=== PATIENT | female | born 1935 | race African-American/Black ===

== ENCOUNTER 2017-08-08 18:26 | Inpatient (IN) ==
[2017-08-08] MEDS ORDERED: 0.9 % Sodium Chloride 500 ML IVC ONE (19:02)
[2017-08-08] MEDS ORDERED: Ondansetron 4 MG/2 ML VIAL IVP ONE (19:08)
--- NOTE | 2017-08-08 19:15 | Emergency Department Note ---
Disposition Clinical Impression: Near syncope Pneumonia Qualifiers: Pneumonia type: due to unspecified organism Laterality: unspecified laterality Lung location: unspecified part of lung Qualified Code(s): J18.9 - Pneumonia, unspecified organism Disposition: Admitted As Inpatient Condition: Fair Referrals: Lobo Nunez MD [Primary Care Provider] - Forms: ED Satisfaction Letter General Adult HPI - General Chief complaint: ED Neuro Symptoms/Deficit Stated complaint: dizziness, headache Time Seen by Provider: 08/08/17 18:35 Source: patient, family Mode of arrival: ambulatory Limitations: no limitations Nursing Notes Reviewed: Yes Vital Signs Reviewed: Yes - History of Present Illness HPI Narrative: 81-year-old female with a history of hypertension presents for evaluation of dizziness. Patient states that she was recently treated for UTI yesterday. Patient had no urinary complaints but was found to have a UTI by her primary care doctor was started on Bactrim. Patient states that since then she has felt dizzy which she describes is more lightheadedness. Patient's been lightheaded upon sitting and standing. Patient's also felt nauseous but no vomiting. Patient denies any chest pain or shortness of breath. But has noted some URI symptoms. Patient denies any fevers. Patient states she has has had intermittent left lower quadrant abdominal pain. Patient denies any change in stools. The only change in medications included her recent Bactrim. Denies history of heart attacks or diabetes. Denies history of strokes. Pain Scale: 0 - Related Data Previous Rx's Medication Instructions Recorded Meclizine [Antivert] 25 mg PO ONCE PRN #14 tablet 06/08/15 Ondansetron HCl [Zofran] 4 mg PO Q6H PRN #12 tablet 06/08/15 Allergies Allergy/AdvReac Type Severity Reaction Status Date / Time codeine Allergy Hives Verified 06/07/15 21:41 All systems ED: reviewed and negative except as stated. Constitutional: Denies: fever Cardiovascular: Denies: chest pain Respiratory: Denies: cough, dyspnea Gastrointestinal: Reports: abdominal pain, nausea Past Medical History - Past Medical History Source: patient Medical history: Reports: hyperlipidemia, hypertension Psychiatric history: Reports: no psych history CART PUSHER history: Reports: no CART PUSHER history - Social History Smoking Status: Former smoker Smokeless Tobacco Status: No Alcohol use: Reports: none Drug use: Reports: none Physical Exam - General Limitations: no limitations General appearance: alert, in no apparent distress - Head Head exam: atraumatic, normocephalic, normal inspection - Eye Eye exam: Present: normal appearance, PERRL, EOMI - ENT ENT exam: normal exam, normal oropharynx, mucous membranes moist - Neck Neck exam: Present: normal inspection, trachea midline - Chest Chest inspection: Present: normal inspection, symmetric chest wall rise - Respiratory Respiratory exam: Present: normal lung sounds bilaterally. Absent: respiratory distress - Cardiovascular Cardiovascular exam: Present: regular rate, normal rhythm, systolic murmur (2/6 systolic murmur left sternal border) - Abdominal Exam Abdominal exam: Present: soft, tenderness. Absent: guarding, rebound - Extremities Exam Extremities exam: Present: normal inspection, pedal edema (1+ b/l) - Expanded Lower Extremity Exam Neurovascular/Tendon exam: Present: normal capillary refill. Absent: pulse deficit, motor deficit, sensory deficit - Back Exam Back exam: Present: normal inspection, full ROM. Absent: tenderness, CVA tenderness (L) - Neurological Exam Neurological exam: Present: alert, oriented X3, CN II-XII intact - Expanded Neurological Exam Patient oriented to: Present: person, place, time Speech: Present: fluid speech Cranial nerves: EOM function (II, III, IV, ): Normal, facial sensation (V): Normal, facial palsy (VII): Normal, spinal accessory function (XI): Normal, tongue deviation (XII): Normal Motor strength - LUE: 5/5 Motor strength - RUE: 5/5 Motor strength - LLE: 5/5 Motor strength - RLE: 5/5 Coma Scale Eye Opening: Spontaneous Coma Scale Motor Response: Obeys Commands Coma Scale Verbal Response: Oriented Coma Scale Total: 15 - Skin Skin exam: Present: warm, dry, intact, normal color Course Course Narrative: Patient seen and examined. Patient will get extensive evaluation including cardiopulmonary evaluation given the degree of lightheadedness and near- syncope. Patient will also get basic labs, urinalysis, chest x-ray CT of the head and abdomen pelvis. Disposition likely admission. - Reevaluation(s) Reevaluation #1: Patient seen and examined. Patient's in no acute distress. Patient states she does been having some cough with some mucousy drainage. Given the patient's history of near-syncope as well as evidence of pneumonia patient would best be observed with IV antibiotics. Patient has no oxygen requirement. Patient does not meet sepsis criteria. Time: 20:57 Vital Signs Temperature 101.1 F H 08/08/17 18:27 Pulse Rate 74 08/08/17 18:27 Respiratory Rate 18 08/08/17 18:27 Blood Pressure 121/62 08/08/17 18:27 O2 Sat by Pulse Oximetry 93 08/08/17 18:27 Temperature 100.2 F H 08/08/17 20:08 Pulse Rate 67 08/08/17 20:08 Respiratory Rate 20 08/08/17 20:08 Blood Pressure 107/53 08/08/17 20:08 O2 Sat by Pulse Oximetry 94 08/08/17 20:08 Oxygen Delivery Oxygen Delivery Room Air Medical Decision Making - MDM Narrative Medical decision making narrative: Patient presented for complaints of headache as well as fever initially. Patient had no suspicion or clinical signs of meningitis on exam. Patient fever sources likely URI with possibly secondary pneumonia. Patient also describes more near syncope symptoms. Given the patient's source of infection as well as near-syncope the patient would best be admitted with IV antibiotics and observation with further testing. Patient was not septic and did not meet criteria. Patient was treated for community acquired pneumonia. Patient denied any chest pain. Patient's screening cardiopulmonary exam was negative in the ED have the patient did have a faint murmur and would best be evaluated via inpatient. Patient was aware plan of care. - Lab Data Lab results reviewed: Yes I reviewed the patient's lab results. Result diagrams: 08/08/17 19:13 08/08/17 19:13 Lab Results 08/08/17 08/08/17 08/08/17 Range/Units 18:55 19:03 19:03 WBC (4.3-11.1) K/mcL RBC (3.82-4.97) M/mcL Hgb (11.5-15.4) g/dL Hct (35.3-44.9) % MCV (83.0-100.0) fL MCH (28.0-33.3) pg MCHC (31.6-35.5) g/dL RDW (11.5-14.5) % Plt Count (140-400) K/mcL MPV (9.4-12.4) fL Immature Gran % (0-4) % Seg Neutrophils % % Lymphocytes % % Monocytes % % Eosinophils % % Basophils % % Neutrophils # (1.6-8.9) K/mcL Lymphocytes # (0.6-4.6) K/mcL Monocytes # (0.0-1.3) K/mcL Eosinophils # (0.0-0.6) K/mcL Basophils # (0.0-0.2) K/mcL Platelet Estimate (Normal) PT 13.3 H (9.4-12.1) Seconds INR 1.2 APTT 37.2 H (26.0-36.0) Seconds Sodium (136-145) mEq/L Potassium (3.5-5.1) mEq/L Chloride (98-107) mEq/L Carbon Dioxide (23-29) mEq/L BUN (8-23) mg/dL Creatinine (0.60-1.20) mg/dL Est GFR ( Amer) (> 60) Est GFR (Non-Af Amer) (> 60) BUN/Creatinine Ratio (6-26) Glucose (70-105) mg/dL POC Glucose 119 H (70-99) mg/dL Calculated Osmolality (280-300) Lactic Acid (0.5-2.2) mmol/L Calcium (8.6-10.3) mg/dL Total Bilirubin (0.3-1.0) mg/dL Direct Bilirubin (0.0-0.2) mg/dL Indirect Bilirubin (0.0-1.2) mg/dL AST (13-39) Units/L ALT (7-52) Units/L Alkaline Phosphatase (34-104) Units/L Troponin I (< 0.04) ng/mL B-Natriuretic Peptide 129 H (Less than 100) pg/mL Serum Total Protein (6.4-8.9) g/dL Albumin (3.5-5.7) g/dL Globulin (2.4-3.5) g/dL Albumin/Globulin Ratio (1.1-2.2) Lipase (11-82) Units/L Ur Specimen Adequacy Urine Color (Yellow) Urine Clarity (Clear) Urine pH (5.0-8.0) pH Units Ur Specific Newell (1.010-1.025) Urine Protein (Neg-Trace) mg/dL Urine Glucose (UA) (Normal) mg/dL Urine Ketones (Negative) mg/dL Urine Blood (Negative) Urine Nitrite (Negative) Urine Bilirubin (Negative) Urine Urobilinogen (Normal) mg/dL Ur Leukocyte Esterase (Negative) Urine Microscopic RBC (0-3) per hpf Urine Microscopic WBC (0-3) per hpf Ur Squamous Epith Cells (None-Few) per lpf Urine Bacteria (None-Few) per hpf Hyaline Casts (None-Few) per lpf Ur Culture Indicated? (NO) 08/08/17 08/08/17 08/08/17 Range/Units 19:13 19:13 19:17 WBC 3.4 L (4.3-11.1) K/mcL RBC 4.75 (3.82-4.97) M/mcL Hgb 13.6 (11.5-15.4) g/dL Hct 41.4 (35.3-44.9) % MCV 87.2 (83.0-100.0) fL MCH 28.6 (28.0-33.3) pg MCHC 32.9 (31.6-35.5) g/dL RDW 14.7 H (11.5-14.5) % Plt Count 117 L (140-400) K/mcL MPV 11.3 (9.4-12.4) fL Immature Gran % 1.5 (0-4) % Seg Neutrophils % 75.5 % Lymphocytes % 4.8 % Monocytes % 12.2 % Eosinophils % 6.0 % Basophils % 0.0 % Neutrophils # 2.6 (1.6-8.9) K/mcL Lymphocytes # 0.2 L (0.6-4.6) K/mcL Monocytes # 0.4 (0.0-1.3) K/mcL Eosinophils # 0.2 (0.0-0.6) K/mcL Basophils # 0.0 (0.0-0.2) K/mcL Platelet Estimate Slight Decrease L (Normal) PT (9.4-12.1) Seconds INR APTT (26.0-36.0) Seconds Sodium 134 L (136-145) mEq/L Potassium 4.3 (3.5-5.1) mEq/L Chloride 98 (98-107) mEq/L Carbon Dioxide 25 (23-29) mEq/L BUN 17 (8-23) mg/dL Creatinine 1.42 H (0.60-1.20) mg/dL Est GFR ( Amer) 43 L (> 60) Est GFR (Non-Af Amer) 36 L (> 60) BUN/Creatinine Ratio 12 (6-26) Glucose 120 H (70-105) mg/dL POC Glucose (70-99) mg/dL Calculated Osmolality 281 (280-300) Lactic Acid (0.5-2.2) mmol/L Calcium 9.6 (8.6-10.3) mg/dL Total Bilirubin 0.8 (0.3-1.0) mg/dL Direct Bilirubin 0.3 H (0.0-0.2) mg/dL Indirect Bilirubin 0.5 (0.0-1.2) mg/dL AST 18 (13-39) Units/L ALT 15 (7-52) Units/L Alkaline Phosphatase 60 (34-104) Units/L Troponin I < 0.03 (< 0.04) ng/mL B-Natriuretic Peptide (Less than 100) pg/mL Serum Total Protein 6.9 (6.4-8.9) g/dL Albumin 4.4 (3.5-5.7) g/dL Globulin 2.5 (2.4-3.5) g/dL Albumin/Globulin Ratio 1.8 (1.1-2.2) Lipase 3 L (11-82) Units/L Ur Specimen Adequacy See below A Urine Color Yellow (Yellow) Urine Clarity Cloudy A (Clear) Urine pH 6.0 (5.0-8.0) pH Units Ur Specific Newell 1.027 H (1.010-1.025) Urine Protein 30 H (Neg-Trace) mg/dL Urine Glucose (UA) Normal (Normal) mg/dL Urine Ketones 15 H (Negative) mg/dL Urine Blood Negative (Negative) Urine Nitrite Negative (Negative) Urine Bilirubin Negative (Negative) Urine Urobilinogen Normal (Normal) mg/dL Ur Leukocyte Esterase Small H (Negative) Urine Microscopic RBC 0-3 (0-3) per hpf Urine Microscopic WBC 5-15 H (0-3) per hpf Ur Squamous Epith Cells Many H (None-Few) per lpf Urine Bacteria Few (None-Few) per hpf Hyaline Casts None Seen (None-Few) per lpf Ur Culture Indicated? NO. A (NO) 06/18/18 Range/Units 20:14 WBC (4.3-11.1) K/mcL RBC (3.82-4.97) M/mcL Hgb (11.5-15.4) g/dL Hct (35.3-44.9) % MCV (83.0-100.0) fL MCH (28.0-33.3) pg MCHC (31.6-35.5) g/dL RDW (11.5-14.5) % Plt Count (140-400) K/mcL MPV (9.4-12.4) fL Immature Gran % (0-4) % Seg Neutrophils % % Lymphocytes % % Monocytes % % Eosinophils % % Basophils % % Neutrophils # (1.6-8.9) K/mcL Lymphocytes # (0.6-4.6) K/mcL Monocytes # (0.0-1.3) K/mcL Eosinophils # (0.0-0.6) K/mcL Basophils # (0.0-0.2) K/mcL Platelet Estimate (Normal) PT (9.4-12.1) Seconds INR APTT (26.0-36.0) Seconds Sodium (136-145) mEq/L Potassium (3.5-5.1) mEq/L Chloride (98-107) mEq/L Carbon Dioxide (23-29) mEq/L BUN (8-23) mg/dL Creatinine (0.60-1.20) mg/dL Est GFR ( Amer) (> 60) Est GFR (Non-Af Amer) (> 60) BUN/Creatinine Ratio (6-26) Glucose (70-105) mg/dL POC Glucose (70-99) mg/dL Calculated Osmolality (280-300) Lactic Acid 1.0 (0.5-2.2) mmol/L Calcium (8.6-10.3) mg/dL Total Bilirubin (0.3-1.0) mg/dL Direct Bilirubin (0.0-0.2) mg/dL Indirect Bilirubin (0.0-1.2) mg/dL AST (13-39) Units/L ALT (7-52) Units/L Alkaline Phosphatase (34-104) Units/L Troponin I (< 0.04) ng/mL B-Natriuretic Peptide (Less than 100) pg/mL Serum Total Protein (6.4-8.9) g/dL Albumin (3.5-5.7) g/dL Globulin (2.4-3.5) g/dL Albumin/Globulin Ratio (1.1-2.2) Lipase (11-82) Units/L Ur Specimen Adequacy Urine Color (Yellow) Urine Clarity (Clear) Urine pH (5.0-8.0) pH Units Ur Specific Newell (1.010-1.025) Urine Protein (Neg-Trace) mg/dL Urine Glucose (UA) (Normal) mg/dL Urine Ketones (Negative) mg/dL Urine Blood (Negative) Urine Nitrite (Negative) Urine Bilirubin (Negative) Urine Urobilinogen (Normal) mg/dL Ur Leukocyte Esterase (Negative) Urine Microscopic RBC (0-3) per hpf Urine Microscopic WBC (0-3) per hpf Ur Squamous Epith Cells (None-Few) per lpf Urine Bacteria (None-Few) per hpf Hyaline Casts (None-Few) per lpf Ur Culture Indicated? (NO) - Radiology Data Radiology results reviewed: Yes I reviewed the patient's radiology results. Chest X-Ray 08/08/17 19:03 IMPRESSION: 1. Left basilar atelectasis versus infiltrate. D/ / Edy Rodríguez MD / Edy Rodríguez MD Interpreting Provider: Edy Rodríguez MD Abdomen/Pelvis CT 08/08/17 19:04 IMPRESSION: 1. No acute process in the abdomen or pelvis. 2. Colonic diverticulosis without evidence of acute diverticulitis. 3. Moderate hiatal hernia. 4. Suspected uterine fibroids. D/ / 08/08/2017 20:27:23 Tala Wells / bob Interpreting Provider: Tala Wells Head CT 08/08/17 19:04 IMPRESSION: No acute intracranial abnormality. D/ / Joyce Vargas MD / Joyce Vargas MD Interpreting Provider: Joyce Vargas MD - EKG Data EKG #1 EKG attestation: Yes I reviewed and interpreted this EKG. EKG shows normal: sinus rhythm Rate: normal Rhythm: NSR [place]/QRS: left axis deviation QTc: other (397) When compared to previous EKG there are: no significant changes Interpretation: unchanged when compared to prior tracing (date) S.B.Yann - Ori Situation: Demographics Background: Presenting Complaint Assessment: Vital Signs, Patient/Family Expectation Recommendation: Barrier(s) to disposition, Recommendation based on pending studies, treatments, or consults S.B.A.Kavon Report Given to: Dr. Jenniffer Rehman Repor Time: 21:03
[2017-08-08 19:30] LABS: Eosinophils # 0.2 K/mcL (0.0-0.6); Hematocrit 41.4 % (35.3-44.9); Hemoglobin 13.6 g/dL (11.5-15.4); Immature Granulocytes % 1.5 % (0-4); Lymphocytes # 0.2 K/mcL (0.6-4.6); Lymphocytes % 4.8 %; Mean Corpuscular HGB Conc 32.9 g/dL (31.6-35.5); Mean Corpuscular Hemoglobin 28.6 pg (28.0-33.3); Mean Corpuscular Volume 87.2 fL (83.0-100.0); Mean Platelet Volume 11.3 fL (9.4-12.4); Monocytes # 0.4 K/mcL (0.0-1.3); Monocytes % 12.2 %; Platelet Count 117 K/mcL (140-400); Red Blood Count 4.75 M/mcL (3.82-4.97); Red Cell Distribution Width 14.7 % (11.5-14.5); Segmented Neutrophils % 75.5 %
[2017-08-08 19:35] LABS: Neutrophils # 2.6 K/mcL (1.6-8.9)
[2017-08-08 19:39] LABS: INR 1.2; Prothrombin Time 13.3 Seconds (9.4-12.1)
[2017-08-08 19:42] LABS: Activated Partial Thrombo Time 37.2 Seconds (26.0-36.0)
[2017-08-08 19:49] LABS: Bilirubin,Urine Negative (Negative); Blood,Urine Negative (Negative); Clarity,Urine Cloudy (Clear); Color,Urine Yellow (Yellow); Glucose,Urine (UA) Normal (Normal); Ketones,Urine 15 mg/dL (Negative); Leukocyte Esterase,Urine Small (Negative); Nitrite,Urine Negative (Negative); Protein,Urine 30 mg/dL (Neg-Trace); Specific Gravity,Urine 1.027 (1.010-1.025); Urobilinogen,Urine Normal (Normal)
[2017-08-08 19:51] LABS: Alanine Aminotransferase 15 Units/L (7-52); Albumin 4.4 g/dL (3.5-5.7); Albumin/Globulin Ratio 1.8 (1.1-2.2); Alkaline Phosphatase 60 Units/L (34-104); Aspartate Amino Transferase 18 Units/L (13-39); BUN/Creatinine Ratio 12 (6-26); Bilirubin,Direct 0.3 mg/dL (0.0-0.2); Bilirubin,Indirect 0.5 mg/dL (0.0-1.2); Bilirubin,Total 0.8 mg/dL (0.3-1.0); Blood Urea Nitrogen 17 mg/dL (8-23); Calcium 9.6 mg/dL (8.6-10.3); Carbon Dioxide 25 mEq/L (23-29); Chloride 98 mEq/L (98-107); Globulin 2.5 g/dL (2.4-3.5); Glucose 120 mg/dL (70-105); Lipase 3 Units/L (11-82); Osmolality,Calculated 281 (280-300); Potassium 4.3 mEq/L (3.5-5.1); Sodium 134 mEq/L (136-145); Total Protein 6.9 g/dL (6.4-8.9); Troponin I < 0.03 ng/mL (< 0.04); eGFR For African Americans 43 (> 60); eGFR For Non-African Americans 36 (> 60)
[2017-08-08 19:51] LABS: Hyaline Casts,Urine None Seen per lpf (None-Few); Squamous Epithelial Cell,Urine Many per lpf (None-Few)
[2017-08-08 19:53] LABS: Bacteria,Urine Few per hpf (None-Few); RBC,Urine 0-3 per hpf (0-3)
[2017-08-08 20:02] LABS: Platelet Estimate Slight Decrease (Normal)
[2017-08-08] MEDS ORDERED: Azithromycin 500 MG in D5% in Water 250 ML IVPB ONE (20:52)
[2017-08-08] MEDS ORDERED: cefTRIAXone 1,000 MG in Water for inj. (sterile) 20 ML 10 ML IVP ONE (20:52)
--- NOTE | 2017-08-08 21:30 | Emergency Department Note ---
Disposition Clinical Impression: Near syncope Pneumonia Qualifiers: Pneumonia type: due to unspecified organism Laterality: unspecified laterality Lung location: unspecified part of lung Qualified Code(s): J18.9 - Pneumonia, unspecified organism Disposition: Admitted As Inpatient Condition: Fair General Adult HPI - General Chief complaint: ED Neuro Symptoms/Deficit Stated complaint: dizziness, headache Time Seen by Provider: 08/08/17 18:35 Source: patient, family Mode of arrival: ambulatory Limitations: no limitations Nursing Notes Reviewed: Yes Vital Signs Reviewed: Yes - History of Present Illness Pain Scale: 0 - Related Data Home Medications Medication Instructions Recorded Confirmed Amiloride/HCTZ 5-50mg [Moduretic 1 tab PO DAILY 08/08/17 08/08/17 5-50mg] Ascorbate Calcium/Bioflavonoid 1 tab PO DAILY 08/08/17 08/08/17 [Krystina-C 500 mg Tablet] Aspirin [Lo-Dose Aspirin EC] 81 mg PO DAILY 08/08/17 08/08/17 Atorvastatin Calcium [Lipitor] 20 mg PO DAILY 08/08/17 08/08/17 Labetalol HCl 400 mg PO BID 08/08/17 08/08/17 Lisinopril [Zestril] 5 mg PO DAILY 08/08/17 08/08/17 Potassium Chloride [Klor-Con 8 meq PO DAILY 08/08/17 08/08/17 Sprinkle] Solifenacin Succinate [Vesicare] 5 mg PO DAILY 08/08/17 08/08/17 Sulfamethoxazole/Trimeth DS 1 tab PO BID 08/08/17 08/08/17 [Bactrim DS] Allergies Allergy/AdvReac Type Severity Reaction Status Date / Time codeine Allergy Hives Verified 06/07/15 21:41 Constitutional: Denies: fever Cardiovascular: Denies: chest pain Respiratory: Denies: cough, dyspnea Gastrointestinal: Reports: abdominal pain, nausea Past Medical History - Past Medical History Medical history: Reports: hyperlipidemia, hypertension Psychiatric history: Reports: no psych history 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 - Social History Smoking Status: Former smoker Smokeless Tobacco Status: No Alcohol use: Reports: none Drug use: Reports: none Physical Exam - General Limitations: no limitations General appearance: alert, in no apparent distress Course Vital Signs Temperature 101.1 F H 08/08/17 18:27 Pulse Rate 74 08/08/17 18:27 Respiratory Rate 18 08/08/17 18:27 Blood Pressure 121/62 08/08/17 18:27 O2 Sat by Pulse Oximetry 93 08/08/17 18:27 Temperature 100.2 F H 08/08/17 20:08 Pulse Rate 67 08/08/17 20:08 Respiratory Rate 20 08/08/17 20:08 Blood Pressure 107/53 08/08/17 20:08 O2 Sat by Pulse Oximetry 94 08/08/17 20:08 Oxygen Delivery Oxygen Delivery Room Air Medical Decision Making - Lab Data Result diagrams: 08/08/17 19:13 08/08/17 19:13 Lab Results 08/08/17 08/08/17 08/08/17 Range/Units 18:55 19:03 19:03 WBC (4.3-11.1) K/mcL RBC (3.82-4.97) M/mcL Hgb (11.5-15.4) g/dL Hct (35.3-44.9) % MCV (83.0-100.0) fL MCH (28.0-33.3) pg MCHC (31.6-35.5) g/dL RDW (11.5-14.5) % Plt Count (140-400) K/mcL MPV (9.4-12.4) fL Immature Gran % (0-4) % Seg Neutrophils % % Lymphocytes % % Monocytes % % Eosinophils % % Basophils % % Neutrophils # (1.6-8.9) K/mcL Lymphocytes # (0.6-4.6) K/mcL Monocytes # (0.0-1.3) K/mcL Eosinophils # (0.0-0.6) K/mcL Basophils # (0.0-0.2) K/mcL Platelet Estimate (Normal) PT 13.3 H (9.4-12.1) Seconds INR 1.2 APTT 37.2 H (26.0-36.0) Seconds Sodium (136-145) mEq/L Potassium (3.5-5.1) mEq/L Chloride (98-107) mEq/L Carbon Dioxide (23-29) mEq/L BUN (8-23) mg/dL Creatinine (0.60-1.20) mg/dL Est GFR ( Amer) (> 60) Est GFR (Non-Af Amer) (> 60) BUN/Creatinine Ratio (6-26) Glucose (70-105) mg/dL POC Glucose 119 H (70-99) mg/dL Calculated Osmolality (280-300) Lactic Acid (0.5-2.2) mmol/L Calcium (8.6-10.3) mg/dL Total Bilirubin (0.3-1.0) mg/dL Direct Bilirubin (0.0-0.2) mg/dL Indirect Bilirubin (0.0-1.2) mg/dL AST (13-39) Units/L ALT (7-52) Units/L Alkaline Phosphatase (34-104) Units/L Troponin I (< 0.04) ng/mL B-Natriuretic Peptide 129 H (Less than 100) pg/mL Serum Total Protein (6.4-8.9) g/dL Albumin (3.5-5.7) g/dL Globulin (2.4-3.5) g/dL Albumin/Globulin Ratio (1.1-2.2) Lipase (11-82) Units/L Ur Specimen Adequacy Urine Color (Yellow) Urine Clarity (Clear) Urine pH (5.0-8.0) pH Units Ur Specific [place] (1.010-1.025) Urine Protein (Neg-Trace) mg/dL Urine Glucose (UA) (Normal) mg/dL Urine Ketones (Negative) mg/dL Urine Blood (Negative) Urine Nitrite (Negative) Urine Bilirubin (Negative) Urine Urobilinogen (Normal) mg/dL Ur Leukocyte Esterase (Negative) Urine Microscopic RBC (0-3) per hpf Urine Microscopic WBC (0-3) per hpf Ur Squamous Epith Cells (None-Few) per lpf Urine Bacteria (None-Few) per hpf Hyaline Casts (None-Few) per lpf Ur Culture Indicated? (NO) 08/08/17 08/08/17 08/08/17 Range/Units 19:13 19:13 19:17 WBC 3.4 L (4.3-11.1) K/mcL RBC 4.75 (3.82-4.97) M/mcL Hgb 13.6 (11.5-15.4) g/dL Hct 41.4 (35.3-44.9) % MCV 87.2 (83.0-100.0) fL MCH 28.6 (28.0-33.3) pg MCHC 32.9 (31.6-35.5) g/dL RDW 14.7 H (11.5-14.5) % Plt Count 117 L (140-400) K/mcL MPV 11.3 (9.4-12.4) fL Immature Gran % 1.5 (0-4) % Seg Neutrophils % 75.5 % Lymphocytes % 4.8 % Monocytes % 12.2 % Eosinophils % 6.0 % Basophils % 0.0 % Neutrophils # 2.6 (1.6-8.9) K/mcL Lymphocytes # 0.2 L (0.6-4.6) K/mcL Monocytes # 0.4 (0.0-1.3) K/mcL Eosinophils # 0.2 (0.0-0.6) K/mcL Basophils # 0.0 (0.0-0.2) K/mcL Platelet Estimate Slight Decrease L (Normal) PT (9.4-12.1) Seconds INR APTT (26.0-36.0) Seconds Sodium 134 L (136-145) mEq/L Potassium 4.3 (3.5-5.1) mEq/L Chloride 98 (98-107) mEq/L Carbon Dioxide 25 (23-29) mEq/L BUN 17 (8-23) mg/dL Creatinine 1.42 H (0.60-1.20) mg/dL Est GFR ( Amer) 43 L (> 60) Est GFR (Non-Af Amer) 36 L (> 60) BUN/Creatinine Ratio 12 (6-26) Glucose 120 H (70-105) mg/dL POC Glucose (70-99) mg/dL Calculated Osmolality 281 (280-300) Lactic Acid (0.5-2.2) mmol/L Calcium 9.6 (8.6-10.3) mg/dL Total Bilirubin 0.8 (0.3-1.0) mg/dL Direct Bilirubin 0.3 H (0.0-0.2) mg/dL Indirect Bilirubin 0.5 (0.0-1.2) mg/dL AST 18 (13-39) Units/L ALT 15 (7-52) Units/L Alkaline Phosphatase 60 (34-104) Units/L Troponin I < 0.03 (< 0.04) ng/mL B-Natriuretic Peptide (Less than 100) pg/mL Serum Total Protein 6.9 (6.4-8.9) g/dL Albumin 4.4 (3.5-5.7) g/dL Globulin 2.5 (2.4-3.5) g/dL Albumin/Globulin Ratio 1.8 (1.1-2.2) Lipase 3 L (11-82) Units/L Ur Specimen Adequacy See below A Urine Color Yellow (Yellow) Urine Clarity Cloudy A (Clear) Urine pH 6.0 (5.0-8.0) pH Units Ur Specific [place] 1.027 H (1.010-1.025) Urine Protein 30 H (Neg-Trace) mg/dL Urine Glucose (UA) Normal (Normal) mg/dL Urine Ketones 15 H (Negative) mg/dL Urine Blood Negative (Negative) Urine Nitrite Negative (Negative) Urine Bilirubin Negative (Negative) Urine Urobilinogen Normal (Normal) mg/dL Ur Leukocyte Esterase Small H (Negative) Urine Microscopic RBC 0-3 (0-3) per hpf Urine Microscopic WBC 5-15 H (0-3) per hpf Ur Squamous Epith Cells Many H (None-Few) per lpf Urine Bacteria Few (None-Few) per hpf Hyaline Casts None Seen (None-Few) per lpf Ur Culture Indicated? NO. A (NO) 08/08/17 Range/Units 20:14 WBC (4.3-11.1) K/mcL RBC (3.82-4.97) M/mcL Hgb (11.5-15.4) g/dL Hct (35.3-44.9) % MCV (83.0-100.0) fL MCH (28.0-33.3) pg MCHC (31.6-35.5) g/dL RDW (11.5-14.5) % Plt Count (140-400) K/mcL MPV (9.4-12.4) fL Immature Gran % (0-4) % Seg Neutrophils % % Lymphocytes % % Monocytes % % Eosinophils % % Basophils % % Neutrophils # (1.6-8.9) K/mcL Lymphocytes # (0.6-4.6) K/mcL Monocytes # (0.0-1.3) K/mcL Eosinophils # (0.0-0.6) K/mcL Basophils # (0.0-0.2) K/mcL Platelet Estimate (Normal) PT (9.4-12.1) Seconds INR APTT (26.0-36.0) Seconds Sodium (136-145) mEq/L Potassium (3.5-5.1) mEq/L Chloride (98-107) mEq/L Carbon Dioxide (23-29) mEq/L BUN (8-23) mg/dL Creatinine (0.60-1.20) mg/dL Est GFR ( Amer) (> 60) Est GFR (Non-Af Amer) (> 60) BUN/Creatinine Ratio (6-26) Glucose (70-105) mg/dL POC Glucose (70-99) mg/dL Calculated Osmolality (280-300) Lactic Acid 1.0 (0.5-2.2) mmol/L Calcium (8.6-10.3) mg/dL Total Bilirubin (0.3-1.0) mg/dL Direct Bilirubin (0.0-0.2) mg/dL Indirect Bilirubin (0.0-1.2) mg/dL AST (13-39) Units/L ALT (7-52) Units/L Alkaline Phosphatase (34-104) Units/L Troponin I (< 0.04) ng/mL B-Natriuretic Peptide (Less than 100) pg/mL Serum Total Protein (6.4-8.9) g/dL Albumin (3.5-5.7) g/dL Globulin (2.4-3.5) g/dL Albumin/Globulin Ratio (1.1-2.2) Lipase (11-82) Units/L Ur Specimen Adequacy Urine Color (Yellow) Urine Clarity (Clear) Urine pH (5.0-8.0) pH Units Ur Specific [place] (1.010-1.025) Urine Protein (Neg-Trace) mg/dL Urine Glucose (UA) (Normal) mg/dL Urine Ketones (Negative) mg/dL Urine Blood (Negative) Urine Nitrite (Negative) Urine Bilirubin (Negative) Urine Urobilinogen (Normal) mg/dL Ur Leukocyte Esterase (Negative) Urine Microscopic RBC (0-3) per hpf Urine Microscopic WBC (0-3) per hpf Ur Squamous Epith Cells (None-Few) per lpf Urine Bacteria (None-Few) per hpf Hyaline Casts (None-Few) per lpf Ur Culture Indicated? (NO) Attestation Statement - Attestation Attestation: I examined this patient and my medical decision-making was reviewed with the Resident Physician, Dr. Kevin. I agree with the documented findings, disposition and treatment plan as described except to the extent set forth below. Patient is an 81-year-old black female who is brought in by her family today for evaluation of fever, generalized weakness and lightheadedness and URI symptoms. Patient was seen and evaluated at her family doctor's office yesterday and started on Bactrim for a bladder infection. Patient denies any urinary symptoms, no abdominal bloating or flank pain and no vomiting. Patient states she has had "a lot of mucus in her throat and draining down the back of her throat" over the past few days associated with these fevers. Patient with occasional nonproductive cough but denies any chest pain pressure or heaviness and no shortness of breath. Patient states with sitting up and standing she gets very lightheaded denies any room spinning sensation, no visual change or loss, no slurred speech or focal weakness. No history of falls or trauma. I agree with patient's physical exam findings as documented. Vital signs are stable, patient is in no acute distress resting comfortably at bedside no signs of respiratory distress and no focal neurologic deficits. Patient had EKG which was normal sinus rhythm without acute ischemia. Patient underwent lab evaluation as well as CT imaging of her head, chest x-ray and urinalysis. Patient's CT imaging was unremarkable. Urinalysis was negative for any acute UTI. Patient does have what appears to be a left lower lobe infiltrate consistent with pneumonia. Due to her generalized weakness and fall risk we will admit the patient for IV antibiotics and further evaluation and management for her pneumonia. Results were discussed with the family and they agree with plan. Case was discussed with the hospitalist who accepts patient for admission.
[2017-08-08] MEDS ORDERED: Naloxone 0.4 MG/ML INJ IVP PRN (23:41)
[2017-08-09] MEDS ORDERED: 0.9 % Sodium Chloride 1,000 ML IVC SCH (00:15)
[2017-08-09] MEDS ORDERED: Acetaminophen 325 MG TABLET PO PRN (03:27)
[2017-08-09] MEDS: *HR* Heparin 5,000 UNIT/ML VIAL SQ SCH ×2 (05:55→16:52)
--- NOTE | 2017-08-09 06:43 | Electrocardiograph Report ---
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
--- NOTE | 2017-08-09 06:46 | Internal Med History&Physical ---
Date of Encounter: 08/09/17 Time of Encounter: 23:00 Internal Medicine - H&P: HPI Chief complaint: UTI, Community acquired pneumonia Admitted From: Home Plans for Post Hospital Care: Home History of present illness: Ms. Lau is a 81 year old female Patient seen in outpatient for 1 week of feeling dizzy and having a headache. Her outpatient doctor did a urinalysis and found a urinary tract infection. She was started on Bactrim a few days ago. Since then she states that she continued to feel dizzy and headaches improve. She denies dysuria, cough, fever and chills. She also states that she has not been drinking very much spending a little bit of time outside. She has also noted increased mucus production as well. In the emergency room chest x-ray showed left basilar infiltrate. She is admitted for treatment with IV antibiotics for pneumonia and UTI. Past Med Surg Social Fam HX - Past Medical History Medical history: hyperlipidemia, hypertension Psychiatric history: no psych history - Past Surgical History Additional surgical history: right fibia surgery - Social History Smoking Status: Never smoker Smokeless Tobacco Status: No Alcohol use: none Drug use: none - Family History Mother Living Status: Hx Family Cancer: Yes Internal Medicine - H&P: Meds Amiloride/HCTZ 5-50mg [Moduretic 5-50mg] 1 tab PO DAILY 08/08/17 [History] Ascorbate Calcium/Bioflavonoid [Krystina-C 500 mg Tablet] 1 tab PO DAILY 08/08/17 [ History] Aspirin [Lo-Dose Aspirin EC] 81 mg PO DAILY 08/08/17 [History] Atorvastatin Calcium [Lipitor] 20 mg PO DAILY 08/08/17 [History] Labetalol HCl 400 mg PO BID 08/08/17 [History] Lisinopril [Zestril] 5 mg PO DAILY 08/08/17 [History] Potassium Chloride [Klor-Con Sprinkle] 8 meq PO DAILY 08/08/17 [History] Solifenacin Succinate [Vesicare] 5 mg PO DAILY 08/08/17 [History] Sulfamethoxazole/Trimeth DS [Bactrim DS] 1 tab PO BID 08/08/17 [History] 3 Allergy/AdvReac Type Severity Reaction Status Date / Time codeine Allergy Hives Verified 06/07/15 21:41 All Systems PM: A 10-system review of systems was performed and is negative for pertinent findings except as documented above in the HPI. - Constitutional Vitals: Temp Pulse Resp BP Pulse Ox 100.5 F H 91 16 131/74 97 08/09/17 04:55 08/09/17 03:23 08/09/17 03:23 08/09/17 03:23 08/09/17 03:23 General appearance: Present: A&O X 3, no acute distress - Head Head exam: Present: atraumatic, normocephalic - Eye Eye exam: Present: EOMI - Respiratory Respiratory exam: Absent: chest wall tenderness, decreased breath sounds, CTAB Additional comments: Left lower lung crackles - Cardiovascular Cardiovascular exam: Present: RRR. Absent: diastolic murmur, systolic murmur - GI/Abdominal GI/Abdominal exam: Present: normal bowel sounds. Absent: guarding, tenderness - Extremities Exam Extremities exam: Present: full ROM, warm. Absent: tenderness - Neurological Exam Neurological exam: Present: CN II-XII intact, oriented X3. Absent: altered - Skin Skin exam: Absent: dry, rash Internal Med - H&P Results - Labs CBC & Chem 7: 08/08/17 19:13 08/08/17 19:13 - Assessment and plan (1) Pneumonia Current Visit: Yes Status: Acute Assessment and plan: As evidenced by patient's chest x-ray, she has a left basilar infiltrate. Could also explain patient's mucus production that she has been noting the last week or so. Patient started on ceftriaxone, so help with the patient's UTI Azithromycin 500 mg IV for 3 days to cover community-acquired pneumonia. Patient declined Mucinex, however consider if patient has difficulty clearing sputum. Qualifiers: Pneumonia type: due to unspecified organism Laterality: left Lung location: unspecified part of lung Qualified Code(s): J18.9 - Pneumonia, unspecified organism (2) Urinary tract infection Current Visit: Yes Status: Acute Assessment and plan: Failed outpatient treatment with Bactrim, she denies dysuria. Ceftriaxone as started, follow cultures of urine. Qualifiers: Qualified Code(s): N39.0 - Urinary tract infection, site not specified (3) Dizziness Current Visit: Yes Status: Acute Assessment and plan: Could be related to patient's infections, however she also stated she does not drink much. Therefore she could be mildly dehydrated. Improved by the time I saw her for examination. Monitor closely, encourage oral hydration. (4) Hypertension Current Visit: Yes Status: Acute Qualifiers: Qualified Code(s): I10 - Essential (primary) hypertension (5) Hypertension, essential Current Visit: Yes Status: Acute Assessment and plan: Chronic, continue home meds. - Time Spent With Patient Total time spent is greater than 50% in coordination of care (as documented) at patient's floor/unit and/or counseling patient: Greater than 35 minutes
[2017-08-09 07:55] LABS: Calcium 8.3 mg/dL (8.6-10.3); Potassium 3.9 mEq/L (3.5-5.1)
[2017-08-09 08:14] LABS: Hematocrit 35.1 % (35.3-44.9); Mean Corpuscular HGB Conc 33.3 g/dL (31.6-35.5); Mean Corpuscular Hemoglobin 28.9 pg (28.0-33.3); Mean Corpuscular Volume 86.7 fL (83.0-100.0); Mean Platelet Volume 10.8 fL (9.4-12.4); Red Blood Count 4.05 M/mcL (3.82-4.97); Red Cell Distribution Width 14.7 % (11.5-14.5)
[2017-08-09 08:15] LABS: Hemoglobin 11.7 g/dL (11.5-15.4); Platelet Count 90 K/mcL (140-400)
[2017-08-09] MEDS ORDERED: Ascorbic Acid 500 MG TABLET PO SCH (09:00)
[2017-08-09] MEDS: cefTRIAXone 1,000 MG in Water for inj. (sterile) 20 ML 10 ML IVP SCH (09:36)
--- NOTE | 2017-08-09 11:16 | Internal Med Progress Note ---
Date of Encounter: 08/09/17 Time of Encounter: 09:55 - Assessment and plan (1) Pneumonia Current Visit: Yes Status: Acute Assessment and plan: Per chest xray. Pt reports recent fatigue, dizziness, and headache. Denies cough, chest pain, fever, chills, myalgias, or malaise. No leukocytosis, fever, tachycardia, or hypotension. Continue IV Zithromax, IV Rocephin, O2 as needed to maintain sats greater than 92%, duo nebs q4h prn. Qualifiers: Pneumonia type: due to unspecified organism Laterality: left Lung location: unspecified part of lung Qualified Code(s): J18.9 - Pneumonia, unspecified organism (2) Dizziness Current Visit: Yes Status: Acute Assessment and plan: Likely secondary to poor po intake, as well as UTI and pneumonia. Pt is eating and drinking well. Pt mildly hyponatremic today, appears to be euvolemic. IVF have been stopped. Monitor for safety and falls Pt reports improvement of dizziness, continue to monitor for labs and vitals. (3) Hypertension Current Visit: Yes Status: Acute Assessment and plan: Chronic. Well controlled. Continue home medications. Qualifiers: Qualified Code(s): I10 - Essential (primary) hypertension (4) Urinary tract infection Current Visit: Yes Status: Acute Assessment and plan: Pt failed outpatient treatment with Bactrim. Chronic increased frequency and mild dysuria and takes Vesicare , denies change in chronic symptoms. Pt reports dizziness and fatigue, improving. Urine is cloudy with small amount leukocyte esterase, 5-15 white cells, few bacteria. Patient is being treated for pneumonia with Rocephin and Zithromax, will continue to treat UTI with this as well. Urine culture is ordered and pending. Qualifiers: Urinary tract infection type: site unspecified Hematuria presence: without hematuria Qualified Code(s): N39.0 - Urinary tract infection, site not specified (5) CKD (chronic kidney disease) stage 3, GFR 30-59 ml/min Current Visit: Yes Status: Chronic Assessment and plan: Sr Cr 1./42. Improved since admission. Avoid nephrotoxins, renally dose medications as needed. (6) DVT prophylaxis Current Visit: Yes Status: Acute - Time Spent With Patient Total time spent is greater than 50% in coordination of care (as documented) at patient's floor/unit and/or counseling patient: less than 15 minutes - Subjective Interval history: Pt is alert and awake, oriented, pleasant, answers questions appropriately. Pt states that she is feeling some better, but has some intermittent nausea. Denies abd pain or back pain. Pt reports that she has chronic increased frequency and dysuria and takes Vesicare, denies increase or worsening of these symptoms. Denies headache, blurred vision, vomiting or diarrhea. - Constitutional Vitals: Temp Pulse Resp BP Pulse Ox 99.6 F 74 15 119/77 94 08/09/17 07:05 08/09/17 07:05 08/09/17 07:05 08/09/17 07:05 08/09/17 07:05 General appearance: Present: cooperative, A&O X 3, pleasant, no acute distress, answers questions appropriately - Head Head exam: Present: atraumatic, normal inspection, normocephalic - Eye Eye exam: Present: normal appearance, conjuntiva pink, sclera anicteric - Neck Neck exam general surgery: Present: supple, trachea midline. Absent: lymphadenopathy, tenderness - Respiratory Respiratory exam: Present: CTAB. Absent: accessory muscle use, chest wall tenderness, decreased breath sounds, rales, respiratory distress, rhonchi, wheezes - Cardiovascular Cardiovascular exam: Present: RRR, +S1, +S2. Absent: diastolic murmur, gallop, rubs, systolic murmur - GI/Abdominal GI/Abdominal exam: Present: normal bowel sounds, soft. Absent: distended, hepatomegaly, tenderness - Extremities Exam Extremities exam: Present: normal capillary refill, normal inspection, warm, radial pulses palpable and symmetrical. Absent: calf tenderness, cyanotic, pedal edema, tenderness - Neurological Exam Neurological exam: Present: alert, oriented X3, no focal deficits. Absent: facial droop, speech deficit - Skin Skin exam: Present: dry, intact, warm. Absent: rash Internal Medicine: Result - Labs CBC & Chem 7: 08/09/17 06:50 08/09/17 06:50 Labs: Short CBC 08/09/17 Range/Units 06:50 WBC 2.4 L (4.3-11.1) K/mcL Hgb 11.7 D (11.5-15.4) g/dL Hct 35.1 L (35.3-44.9) % Plt Count 90 L (140-400) K/mcL BMP 08/09/17 06:50 Sodium 132 L Potassium 3.9 Chloride 100 Carbon Dioxide 23 BUN 16 Creatinine 1.22 H Glucose 109 H Calcium 8.3 L - ABG Interpretation ABG results: PT/INR, D-dimer PT 13.3 Seconds (9.4-12.1) H 08/08/17 19:03 Consult Discharge Plan - Plan Referrals: Lobo Nunez MD [Primary Care Provider] -
[2017-08-09] MEDS: Ascorbic Acid 500 MG TABLET PO SCH (11:38)
[2017-08-09] MEDS: Ipratropium/Albuterol Neb 3 ML IH SCH ×3 (13:57→19:38)
[2017-08-09] MEDS ORDERED: Azithromycin 500 MG in D5% in Water 250 ML IVPB SCH (21:00)
[2017-08-10] MEDS: Ipratropium/Albuterol Neb 3 ML IH SCH ×4 (00:01→11:04)
[2017-08-10] MEDS: *HR* Heparin 5,000 UNIT/ML VIAL SQ SCH (04:55)
[2017-08-10 05:30] LABS: Basophils % 0.5 %; Eosinophils # 0.3 K/mcL (0.0-0.6); Hemoglobin 11.6 g/dL (11.5-15.4); Immature Granulocytes % 0.9 % (0-4); Immature Platelets 7.1 % (1.1-6.1); Lymphocytes # 0.6 K/mcL (0.6-4.6); Lymphocytes % 27.4 %; Mean Corpuscular HGB Conc 32.2 g/dL (31.6-35.5); Mean Corpuscular Hemoglobin 28.2 pg (28.0-33.3); Mean Corpuscular Volume 87.4 fL (83.0-100.0); Mean Platelet Volume 11.6 fL (9.4-12.4); Monocytes % 20.5 %; Neutrophils # 0.8 K/mcL (1.6-8.9); Red Blood Count 4.12 M/mcL (3.82-4.97); Red Cell Distribution Width 14.7 % (11.5-14.5); Segmented Neutrophils % 37.7 %
[2017-08-10 05:34] LABS: Monocytes # 0.5 K/mcL (0.0-1.3); Platelet Count 89 K/mcL (140-400)
[2017-08-10 05:46] LABS: Calcium 8.4 mg/dL (8.6-10.3); Potassium 3.8 mEq/L (3.5-5.1)
[2017-08-10 06:07] LABS: Platelet Estimate Decreased (Normal); Reactive Lymphocytes Present (Not Present)
[2017-08-10 06:39] VITALS: BP 117/62
[2017-08-10] MEDS: cefTRIAXone 1,000 MG in Water for inj. (sterile) 20 ML 10 ML IVP SCH (07:47)
[2017-08-10] MEDS: Ascorbic Acid 500 MG TABLET PO SCH (07:47)
--- NOTE | 2017-08-10 08:29 | Discharge Summary ---
- NOTES TO OUTPATIENT PROVIDER Notes to Outpatient Provider: Pt was admitted for fatigue, dizziness. Diagnosed with CAP and UTI. Pt was treated with Zithromax and Rocephin IV x 2 days. Pt has CURB 65 score of 1 and states that she is feeling better. Pt feels that she is back to baseline. She was discharged with Levaquin 500mg po daily to treat both CAP and UTI. Urine culture is still pending. Orders not resulted at time of discharge: Pending orders 08/09/17 11:24 Culture,Urine [RM] Routine Date of Encounter: 08/10/17 Time of Encounter: 08:45 - Discharge Diagnosis (1) Pneumonia Priority: Primary Status: Acute Assessment and Plan: Pt states that she is feeling better. Has returned to baseline. Lungs are clear throughout and she denies cough. Will be discharged with Levaquin 500mg qod for renal function, and was treated with Zithromax and Rocephin IV x 2 days. She is not requiring supplemental 02 and is in no distress. CURB 65 score of 1- low risk. Pt has no leukocytosis or fever, no tachycardia and is normotensive. Qualifiers: Pneumonia type: due to unspecified organism Laterality: left Lung location: unspecified part of lung Qualified Code(s): J18.9 - Pneumonia, unspecified organism (2) Dizziness Priority: Secondary Status: Resolved Assessment and Plan: Resolved. Likely secondary to poor po intake, as well as UTI and pneumonia. Pt is eating and drinking well, hyponatremia is resolving. (3) Hypertension Priority: Secondary Status: Chronic Assessment and Plan: Chronic. Stable. Continue home medications. Qualifiers: Qualified Code(s): I10 - Essential (primary) hypertension (4) Urinary tract infection Priority: Secondary Status: Acute Assessment and Plan: Pt failed outpatient treatment with Bactrim. Chronic increased frequency and mild dysuria and takes Vesicare , denies change in chronic symptoms. Pt reports dizziness and fatigue, improving. Pt will be sent home with Levaquin 500mg po qod to treat both UTI and CAP Urine culture is ordered and pending. Follow and notify pt if change in abx needed. Qualifiers: Urinary tract infection type: site unspecified Hematuria presence: without hematuria Qualified Code(s): N39.0 - Urinary tract infection, site not specified (5) CKD (chronic kidney disease) stage 3, GFR 30-59 ml/min Priority: Secondary Status: Chronic Assessment and Plan: Sr Cr 1.. Improved since admission and appears to back at pt's baseline. Avoid nephrotoxins, renally dose medications as needed. (6) DVT prophylaxis Priority: Secondary Status: Acute Assessment and Plan: Heparin SQ BID. Hospital course: Ms. Lau is a 81 year old female with past medical history of stage III chronic kidney disease, HTN. PT was admitted for fatigue and weakness after failing outpatient therapy for UTI with Bactrim. Patient was admitted and found to have been acquired pneumonia on chest x-ray, as well as UTI. Urine culture is still pending. She was treated with IV Zithromax and Rocephin for both CAP and UTI. Patient with baseline stage III CKD. Serum creatinine has returned to normal, GFR is back to patient's baseline. Patient will be sent home with prescription for Levaquin 500 mg every other day to treat both pneumonia and UTI. Patient is stable, states that she is feeling much better, she is able to walk around her room without any difficulty. She denies any cough and is in no obvious respiratory distress. Her lungs are clear throughout. She is afebrile, no leukocytosis, no fever, no chills, no tachycardia, and she is normotensive. Her labs and vitals are stable and within normal limits, she is appropriate for discharge. Discharge discussed with: patient - Time Spent with Patient Total time spent providing and/or coordinating discharge services: Less than 30 minutes - Discharge Medications Prescriptions: Levofloxacin [Levaquin] 500 mg PO Q48H #4 tablet Home Medications: Amiloride/HCTZ 5-50mg [Moduretic 5-50mg] 1 tab PO DAILY 08/08/17 [History] Ascorbate Calcium/Bioflavonoid [Krystina-C 500 mg Tablet] 1 tab PO DAILY 08/08/17 [ History] Aspirin [Lo-Dose Aspirin EC] 81 mg PO DAILY 08/08/17 [History] Atorvastatin Calcium [Lipitor] 20 mg PO DAILY 08/08/17 [History] Labetalol HCl 400 mg PO BID 08/08/17 [History] Lisinopril [Zestril] 5 mg PO DAILY 08/08/17 [History] Potassium Chloride [Klor-Con Sprinkle] 8 meq PO DAILY 08/08/17 [History] Solifenacin Succinate [Vesicare] 5 mg PO DAILY 08/08/17 [History] Levofloxacin [Levaquin] 500 mg PO Q48H #4 tablet 08/10/17 [Rx] Allergies/Adverse Reactions: 3 Allergy/AdvReac Type Severity Reaction Status Date / Time codeine Allergy Hives Verified 06/07/15 21:41 Date of admission: 08/09/17 06:37 Primary care physician: Lobo Nunez MD Consults: 08/09/17 08:26 Consult to Nurse Navigator [CONS] Routine Comment: PNEUMONIA Discharging clinician: Valarie Yeboah Anticipated date of discharge: 08/10/17 - Constitutional Vitals: Temp Pulse Resp BP Pulse Ox 98.1 F 60 20 117/62 94 08/10/17 06:38 08/10/17 06:38 08/10/17 07:38 08/10/17 06:38 08/10/17 07:38 General appearance: Present: cooperative, A&O X 3, pleasant, no acute distress, answers questions appropriately - Head Head exam: Present: atraumatic, normal inspection, normocephalic - Eye Eye exam: Present: normal appearance, conjuntiva pink, sclera anicteric - Neck Neck exam general surgery: Present: normal inspection, supple, trachea midline. Absent: lymphadenopathy, tenderness - Respiratory Respiratory exam: Present: CTAB. Absent: accessory muscle use, rales, rhonchi, wheezes - Cardiovascular Cardiovascular exam: Present: RRR, +S1, +S2. Absent: diastolic murmur, gallop, rubs, systolic murmur - GI/Abdominal GI/Abdominal exam: Present: normal bowel sounds, soft. Absent: distended, hepatomegaly, tenderness - Extremities Exam Extremities exam: Present: normal capillary refill, normal inspection, warm, radial pulses palpable and symmetrical. Absent: calf tenderness, cyanotic, pedal edema, tenderness - Neurological Exam Neurological exam: Present: alert, oriented X3, no focal deficits. Absent: altered, facial droop, speech deficit - Skin Skin exam: Present: dry, intact, normal color, warm. Absent: rash - Patient Status Disposition: Home, Self-Care Condition: Good Functional capacity at discharge: independent ambulation Overall status at discharge: patient is progressing back to baseline - Discharge Instructions Follow Up With: Lobo Nunez MD [Primary Care Provider] - Additional Instructions: Please follow up with your PCP in the next 3-5 days for a recheck. Return to the ER immediately if your symptoms return or worsen. Take your medications as directed and your new antibiotic prescription is at your pharmacy. Resume your normal activities and diet as tolerated. - Diet and Activity Activity: increase activity as tolerated Diet: advance to your usual diet
== END 2017-08-10 11:26 | disposition home or self-care (01) | DRG 689 ==
LOC: 3BNU 18:26 → EMEROO 18:26 → 3BNU 22:08
PROVIDERS: ADMIT Family Medicine; ATTEND Family Medicine